=== PATIENT | male | born 1945 | race Caucasian/White ===

== ENCOUNTER 2023-01-10 14:59 | Emergency (ER) | payer OTHER ==
[~2023-01-10] VITALS: Ht 177.8 cm; Wt 72.6 kg
[2023-01-10 15:54] LABS: BASOPHILS 0.9 % (0-2); EOSINOPHILS 1.9 % (0-6); HEMATOCRIT 34.5 % (35.0-50.0); HEMOGLOBIN 11.3 g/dL (12.0-18.0); LYMPHOCYTES 10.5 % (24-44); MCH 27.2 (27-36); MCHC 32.8 g/dl (30-36); MONOCYTES 7.2 % (0-12); NEUTROPHILS 79.5 % (39-80); PLATELET COUNT 283 K/uL (140-440); RBC 4.15 M/ul (4.3-5.7); RDW 15.1 (10.5-15.0)
[2023-01-10 16:05] LABS: ALBUMIN 1.5 g/dL (3.4-5.0); ALBUMIN/GLOBULIN RATIO 0.31 (1.1-2.4); ANION GAP 12.2 (7-21); BILIRUBIN, TOTAL 0.5 ng/dL (0.2-1.0); BUN/CREATININE RATIO 22.61 (6.0-28.6); CALCIUM 7.9 mg/dL (8.5-10.1); CREATININE, SERUM 0.84 mg/dL (0.70-1.30); POTASSIUM 3.2 mmol/L (3.5-5.1); PROTEIN, TOTAL 6.3 g/dL (6.4-8.2)
[2023-01-10] MEDS ORDERED: BENZONATATE100 MG PO (16:54)
[2023-01-10] MEDS ORDERED: HYDROCODON-ACE1 EA10 PO (16:54)
[2023-01-10 17:05] VITALS: BP 118/70
== END 2023-01-10 17:05 | disposition home or self-care (01) ==
LOC: ED 14:59
PROVIDERS: Emergency Medicine
DX: R91.8 Other nonspecific abnormal finding of lung field (principal); E11.9 Type 2 diabetes mellitus without complications; Z85.118 Personal history of other malignant neoplasm of bronchus and lung; Z88.8 Allergy status to other drugs, medicaments and biological substances
CPT/HCPCS: 36415; 71045; 80053; 85025; J7030